=== PATIENT | female | born 1980 | race Caucasian/White ===

== ENCOUNTER 2021-10-07 19:31 | Emergency (ER) | payer BC, OTHER ==
[~2021-10-07] VITALS: Ht 170 cm; Wt 68.5 kg
[2021-10-07] MEDS ORDERED: FLUMAZENIL (ROMAZICON) 0.1 MG/ML 10 ML VIAL IV STA (19:34)
--- NOTE | 2021-10-07 19:34 | ED General ---
General Stated Complaint: OD History of Present Illness Date Seen by Provider: Oct 07, 2021 Time Seen by Provider: 19:33 Initial Comments 41-year-old female is brought in by EMS with complaints of Xanax overdose and alcohol intoxication. Patient was found in her trailer by her who called EMS. It is unknown at what time the patient took the medication. Patient states that she took 6 tablets of Xanax and melatonin and was trying to sleep. Patient is very drowsy and has slurred speech but she is slowly able to answer questions. Denies headache, falls, LOC, nausea and vomiting, abdominal pain, chest pain, shortness of breath. (AGATA COOPER MD) Allergies and Home Medications Allergies Coded Allergies: doxycycline (Verified Allergy, Unknown, 10/08/21) Patient Home Medication List Home Medication List Reviewed: Yes (AGATA COOPER MD) Review of Systems Review of Systems Constitutional: other (drowsy) EENTM: no symptoms reported Respiratory: no symptoms reported Cardiovascular: no symptoms reported Gastrointestinal: no symptoms reported Genitourinary: no symptoms reported Musculoskeletal: no symptoms reported Skin: no symptoms reported Psychiatric/Neurological: Emotional Problems, Other (overdose/ drowsy) Hematologic/Lymphatic: No Symptoms Reported Immunological/Allergic: no symptoms reported (AGATA COOPER MD) Physical Exam Vital Signs Vital Signs - First Documented 10/07/21 19:34 Temp 36.4 Pulse 141 Resp 25 B/P (MAP) 129/80 (96) Pulse Ox 95 O2 Delivery Nasal Cannula (NICHELLE NIXON MD) Vital Signs Capillary Refill : (AGATA COOPER MD) Height, Weight, BMI Height: '" Weight: lbs. oz. kg; BMI Method: General Appearance: No Apparent Distress, Other (drowsy) HEENT: PERRL/EOMI, Other (dry mucous membranes) Neck: Full Range of Motion, Normal Inspection, Non Tender, Supple Respiratory: Chest Non Tender, Lungs Clear, Normal Breath Sounds, No Accessory Muscle Use Cardiovascular: No Edema, No Murmur, Normal Peripheral Pulses, Tachycardia Gastrointestinal: Normal Bowel Sounds, Non Tender, Soft Neurologic/Psychiatric: Alert, Oriented x3, No Motor/Sensory Deficits, manager latin II- XII Norm as Tested, Other (drowsy but improving and able to answer all questions) Skin: Normal Color Lymphatic: No Adenopathy (AGATA COOPER MD) Progress/Results/Core Measures Suspected Sepsis SIRS Temperature: Pulse: Respiratory Rate: Laboratory Tests 10/07/21 19:30: White Blood Count 11.1H Blood Pressure / Mean: Laboratory Tests 10/07/21 19:30: Creatinine 0.67, Platelet Count 513H, Total Bilirubin 1.6H (AGATA COOPER MD) Results/Orders Lab Results Laboratory Tests Test 10/07/21 19:30 10/07/21 19:48 10/08/21 00:51 10/08/21 06:21 Range/Units White Blood Count 11.1 H 4.3-11.0 10^3/uL Red Blood Count 4.98 3.80-5.11 10^6/uL Hemoglobin 16.4 H 11.5-16.0 g/dL Hematocrit 47 35-52 % Mean Corpuscular Volume 94 80-99 fL Mean Corpuscular Hemoglobin 33 25-34 pg Mean Corpuscular Hemoglobin Concent 35 32-36 g/dL Red Cell Distribution Width 13.4 10.0-14.5 % Platelet Count 513 H 130-400 10^3/uL Mean Platelet Volume 9.5 9.0-12.2 fL Immature Granulocyte % (Auto) 0 % Neutrophils (%) (Auto) 70 42-75 % Lymphocytes (%) (Auto) 20 12-44 % Monocytes (%) (Auto) 7 0-12 % Eosinophils (%) (Auto) 1 0-10 % Basophils (%) (Auto) 2 0-10 % Neutrophils # (Auto) 7.8 1.8-7.8 10^3/uL Lymphocytes # (Auto) 2.2 1.0-4.0 10^3/uL Monocytes # (Auto) 0.8 0.0-1.0 10^3/uL Eosinophils # (Auto) 0.2 0.0-0.3 10^3/uL Basophils # (Auto) 0.2 H 0.0-0.1 10^3/uL Immature Granulocyte # (Auto) 0.0 0.0-0.1 10^3/uL Sodium Level 141 135-145 MMOL/L Potassium Level 4.2 3.6-5.0 MMOL/L Chloride Level 98 98-107 MMOL/L Carbon Dioxide Level 21 21-32 MMOL/L Anion Gap 22 H 5-14 MMOL/L Blood Urea Nitrogen 5 L 7-18 MG/DL Creatinine 0.67 0.60-1.30 MG/DL Estimat Glomerular Filtration Rate 113 BUN/Creatinine Ratio 7 Glucose Level 70 70-105 MG/DL Calcium Level 12.4 H 8.5-10.1 MG/DL Corrected Calcium 8.5-10.1 MG/DL Total Bilirubin 1.6 H 0.1-1.0 MG/DL Aspartate Amino Transf (AST/SGOT) 162 H 5-34 U/L Alanine Aminotransferase (ALT/SGPT) 147 H 0-55 U/L Alkaline Phosphatase 100 40-136 U/L Total Protein 8.5 H 6.4-8.2 GM/DL Albumin 4.8 H 3.2-4.5 GM/DL Salicylates Level < 0.3 L 5.0-20.0 MG/DL Acetaminophen Level < 10 L 10-30 UG/ML Serum Alcohol 303 *H 215 H 121 H <10 MG/DL Urine Color YELLOW Urine Clarity CLEAR Urine pH 5.5 5-9 Urine Specific [place] 1.020 1.016-1.022 Urine Protein NEGATIVE NEGATIVE Urine Glucose (UA) NEGATIVE NEGATIVE Urine Ketones 2+ H NEGATIVE Urine Nitrite NEGATIVE NEGATIVE Urine Bilirubin NEGATIVE NEGATIVE Urine Urobilinogen 0.2 < = 1.0 MG/DL Urine Leukocyte Esterase NEGATIVE NEGATIVE Urine RBC (Auto) NEGATIVE NEGATIVE Urine RBC NONE /HPF Urine WBC RARE /HPF Urine Squamous Epithelial Cells 5-10 /HPF Urine Crystals NONE /LPF Urine Bacteria NEGATIVE /HPF Urine Casts PRESENT /LPF Urine Hyaline Casts 5-10 H /LPF Urine Mucus SMALL H /LPF Urine Culture Indicated NO Urine Opiates Screen NEGATIVE NEGATIVE Urine Oxycodone Screen NEGATIVE NEGATIVE Urine Methadone Screen NEGATIVE NEGATIVE Urine Propoxyphene Screen NEGATIVE NEGATIVE Urine Barbiturates Screen NEGATIVE NEGATIVE Ur Tricyclic Antidepressants Screen NEGATIVE NEGATIVE Urine Phencyclidine Screen NEGATIVE NEGATIVE Urine Amphetamines Screen NEGATIVE NEGATIVE Urine Methamphetamines Screen NEGATIVE NEGATIVE Urine Benzodiazepines Screen POSITIVE H NEGATIVE Urine Cocaine Screen NEGATIVE NEGATIVE Urine Cannabinoids Screen NEGATIVE NEGATIVE Test 10/08/21 09:03 Range/Units Serum Alcohol 70 H <10 MG/DL (NICHELLE NIXON MD) My Orders Orders - NICHELLE NIXON MD Alcohol (10/08/21 08:41) Lorazepam Tablet (Ativan Tablet) (10/08/21 14:59) (NICHELLE NIXON MD) Medications Given in ED (NICHELLE NIXON MD) Vital Signs/I&O 10/07/21 10/08/21 10/08/21 19:34 06:35 18:14 Temp 36.4 36.4 Pulse 141 107 98 Resp 25 21 18 B/P (MAP) 129/80 (96) 118/79 122/68 Pulse Ox 95 94 99 O2 Delivery Nasal Cannula Room Air Room Air 10/08/21 00:00 Intake Total 1000 ml Balance 1000 ml (NICHELLE NIXON MD) Vital Signs/I&O Capillary Refill : (AGATA COOPER MD) Progress Note : Progress Note 1. XANAX OVERDOSE: - Pt took 6 tablets of Xanax - Labs unremarkable - EKG shows sinus tachycardia - NS IVF - Flumazenil 0.2mg STAT given x1 - Pt more alert and able to speak clearly after treatment and fluids. Pt wants to be discharged home. Initial plan: Pt will need to be transferred to ICU/ step down for telemetry monitoring and psych screening. CURRENT PLAN:A lot of time was spent on the phone trying different hospitals for an ICU bed but none were available, and [facility] did not have enough staff to open all their ICU beds. Therefore I decided to keep pt in the ER and monitor her until her vitals improve and she can have psych screening after her s. ETOH level is <100 2. ALCOHOL INTOXICATION: - s. ETOH level is 303 - AST:ALT elevation - NS IVF bolus STAT - Repeat ETOH level 121,will reach out to psych screener. - Signed out to Dr Nixon (AGATA COOPER MD) Progress Note : Progress Note 0740: Patient care transferred to [facility] at 0700. Patient is alert and oriented. Patient stated she had several Xanax and melatonin and some alcohol yesterday just wanted to sleep. Patient denies suicidal and homicidal ideation and history of suicidal attempt or mental hospitalization. Patient states she cannot take any depression medication because of prolonged QT syndrome. Blood alcohol level at 0 620 was 121. Patient encouraged to drink more liquid and plan to repeat blood alcohol again to have level less than 100 to able to perform psychiatric evaluation. Patient informed about plan of care and needs to repeat the blood test and all questions was addressed. 1630: Repeat alcohol level at 9 AM was 70 and psychiatric consult was requested that was performed around 1530 with still going on. Patient had increase of heart rate to 120s and 1 mg of Ativan orally was ordered but was not given because patient is in interview with psych supervisor [employer]. 1810: Patient was evaluated by psych transport driver Oscar Canales, she did not have criteria for inpatient admission. Patient had lots of family support and feels comfortable to go home. Her mother is going to stay with her and her is going to be there with her children also. Patient plan to follow-up with counselor. Patient advised to stop drinking gradually, not suddenly for prevention of DT. Patient signed safety agreement. Patient ambulated without any problem. (NICHELLE NIXON MD) Departure Impression Primary Impression: Xanax overdose Additional Impression: Alcohol intoxication Qualified Codes: F10.929 - Alcohol use, unspecified with intoxication, unspecified Disposition: 01 HOME, SELF-CARE Condition: Improved Admissions Decision to Admit Reason: Admit from ER (General) Decision to Admit/Date: Oct 07, 2021 Time/Decision to Admit Time: 19:35 (AGATA COOPER MD) Transfer Method of Transfer: EMS (AGATA COOPER MD) Departure-Patient Inst. Decision time for Depature: 18:10 (NICHELLE NIXON MD) Patient Instructions: ALCOHOL AND SUBSTANCE ABUSE, Alcohol Withdrawal, Alcohol Intoxication ED Add. Discharge Instructions: Stop drinking alcohol gradually Follow UP with AA Follow up with your PCP and consoler Return to ER as needed AGATA COOPER MD Oct 07, 2021 19:34 NICHELLE NIXON MD Oct 08, 2021 08:01
[2021-10-07 19:45] LABS: BASOPHILS # (AUTO) 0.2 10^3/uL (0.0-0.1); BASOPHILS % (AUTO) 2 % (0-10); EOSINOPHILS # (AUTO) 0.2 10^3/uL (0.0-0.3); EOSINOPHILS % (AUTO) 1 % (0-10); HEMATOCRIT 47 % (35-52); HEMOGLOBIN 16.4 g/dL (11.5-16.0); LYMPHOCYTES # (AUTO) 2.2 10^3/uL (1.0-4.0); LYMPHOCYTES % (AUTO) 20 % (12-44); MEAN CORPUSCULAR HEMOGLOBIN 33 pg (25-34); MEAN CORPUSCULAR HGB CONC 35 g/dL (32-36); MEAN CORPUSCULAR VOLUME 94 fL (80-99); MEAN PLATELET VOLUME 9.5 fL (9.0-12.2); MONOCYTES # (AUTO) 0.8 10^3/uL (0.0-1.0); MONOCYTES % (AUTO) 7 % (0-12); NEUTROPHILS # (AUTO) 7.8 10^3/uL (1.8-7.8); NEUTROPHILS % (AUTO) 70 % (42-75); PLATELET COUNT 513 10^3/uL (130-400); WHITE BLOOD COUNT 11.1 10^3/uL (4.3-11.0)
[2021-10-07] MEDS ORDERED: LIDOCAINE UROJET 2% GEL 10 ML PKG TOP ONE (19:45)
[2021-10-07] MEDS ORDERED: NS IV 1000 ML 1,000 ML IV SCH ×2 (19:45→23:00)
[2021-10-07 19:51] LABS: BILIRUBIN,URINE NEGATIVE (NEGATIVE); CLARITY,URINE CLEAR; COLOR,URINE YELLOW; GLUCOSE, URINE (UA) NEGATIVE (NEGATIVE); KETONES,URINE 2+ (NEGATIVE); LEUKOCYTE ESTERASE ,URINE NEGATIVE (NEGATIVE); NITRITE,URINE NEGATIVE (NEGATIVE); PH,URINE 5.5 (5-9); PROTEIN,URINE NEGATIVE (NEGATIVE)
[2021-10-07 20:11] LABS: BACTERIA,URINE NEGATIVE /HPF; WBC,URINE RARE /HPF
[2021-10-07 20:12] LABS: BUN/CREATININE RATIO 7; CARBON DIOXIDE 21 MMOL/L (21-32); CHLORIDE 98 MMOL/L (98-107); CREATININE SERUM 0.67 MG/DL (0.60-1.30); GFR ESTIMATED 113; GLUCOSE 70 MG/DL (70-105); POTASSIUM 4.2 MMOL/L (3.6-5.0); SODIUM 141 MMOL/L (135-145)
[2021-10-07 20:12] LABS: AMPHETAMINE SCREEN, URINE NEGATIVE (NEGATIVE); BARBITURATE SCREEN URINE NEGATIVE (NEGATIVE); BENZODIAZEPINES SCREEN URINE POSITIVE (NEGATIVE); CANNABINOID SCREEN, URINE NEGATIVE (NEGATIVE); COCAINE SCREEN URINE NEGATIVE (NEGATIVE); METHADONE STAT NEGATIVE (NEGATIVE); OPIATE SCREEN URINE NEGATIVE (NEGATIVE); OXYCODONE STAT NEGATIVE (NEGATIVE); PROPOXYPHENE STAT NEGATIVE (NEGATIVE); TRICYCLIC ANTIDEPRESSANTS SCRE NEGATIVE (NEGATIVE)
[2021-10-07 20:13] LABS: ACETAMINOPHEN < 10 UG/ML (10-30); ALANINE AMINOTRANSFERASE 147 U/L (0-55); ALBUMIN 4.8 GM/DL (3.2-4.5); ALKALINE PHOSPHATASE 100 U/L (40-136); BILIRUBIN,TOTAL 1.6 MG/DL (0.1-1.0); CALCIUM 12.4 MG/DL (8.5-10.1); SALICYLATE < 0.3 MG/DL (5.0-20.0); TOTAL PROTEIN 8.5 GM/DL (6.4-8.2)
--- NOTE | 2021-10-07 20:16 | Diagnostic Imaging Report ---
INDICATION: Overdose. FINDINGS: There is no focal consolidation, failure pattern, effusion or pneumothorax. IMPRESSION: No acute appearing abnormality Dictated by: Dictated on workstation # [id number]
[2021-10-07] MEDS ORDERED: THIAMINE INJECTION 100 MG in NS (IVPB) 50 ML IV STA (23:25)
[2021-10-07] MEDS ORDERED: FOLIC ACID 1 MG TAB PO ONE (23:30)
[2021-10-08] MEDS ORDERED: NS IV 1000 ML 1,000 ML IV STA (00:47)
[2021-10-08] MEDS ORDERED: ACETAMINOPHEN 325 MG TABLET PO ONE (05:45)
[2021-10-08] MEDS ORDERED: LORazepam 0.5 MG (ATIVAN) TABLET PO STA (14:59)
[2021-10-08 18:14] VITALS: BP 122/68
== END 2021-10-08 18:13 | disposition home or self-care (01) ==
LOC: ER FS 19:34
DX: T42.4X1A Poisoning by benzodiazepines, accidental (unintentional), initial encounter (principal); F10.129 Alcohol abuse with intoxication, unspecified; Y90.3 Blood alcohol level of 60-79 mg/100 ml
CPT/HCPCS: 36415 ×2; 71045; 80053; 80306; 81000; 85025; 93005; 93041; 99284; G0480 ×4; 80320; 80329

== ENCOUNTER 2022-03-14 23:58 | Inpatient (IN) | payer BC ==
[~2022-03-14] VITALS: Ht 167.7 cm; Wt 74.6 kg
[2022-03-15 00:14] LABS: BASOPHILS # (AUTO) 0.1 10^3/uL (0.0-0.1); BASOPHILS % (AUTO) 1 % (0-10); EOSINOPHILS % (AUTO) 0 % (0-10); HEMATOCRIT 43 % (35-52); HEMOGLOBIN 15.6 g/dL (11.5-16.0); LYMPHOCYTES # (AUTO) 1.7 10^3/uL (1.0-4.0); LYMPHOCYTES % (AUTO) 13 % (12-44); MEAN CORPUSCULAR HEMOGLOBIN 35 pg (25-34); MEAN CORPUSCULAR HGB CONC 36 g/dL (32-36); MEAN CORPUSCULAR VOLUME 97 fL (80-99); MEAN PLATELET VOLUME 9.9 fL (9.0-12.2); MONOCYTES # (AUTO) 1.5 10^3/uL (0.0-1.0); MONOCYTES % (AUTO) 12 % (0-12); NEUTROPHILS # (AUTO) 9.5 10^3/uL (1.8-7.8); NEUTROPHILS % (AUTO) 74 % (42-75); PLATELET COUNT 255 10^3/uL (130-400); WHITE BLOOD COUNT 12.8 10^3/uL (4.3-11.0)
[2022-03-15] MEDS ORDERED: ONDANSETRON 4 MG/2 ML (SDV) Z0FRAN IVP ONE (00:15)
[2022-03-15] MEDS ORDERED: NS IV 1000 ML 1,000 ML IV SCH ×2 (00:15→02:00)
--- NOTE | 2022-03-15 00:18 | ED Abdominal Pain ---
General Chief Complaint: Abdominal/GI Problems Stated Complaint: STIFFNESS, NAUSEA VOMITING, History of Present Illness Date Seen by Provider: Mar 15, 2022 Time Seen by Provider: 00:16 Initial Comments 41-year-old female here with complaints of nausea and vomiting for over a day. Has vomited a lot. Now patient is having muscle cramping in the hands. Her hands are cramped up and she cannot move them. States she is this is happened once before and she had a magnesium deficiency at that time. Patient not having any fever. Was having some abdominal pain. No diarrhea no constipation. Pain was down low. Patient is shaking. Patient states she got history of anxiety but she is not on any meds for that she had been on medicine for high blood pressure but is not on meds for that either. Allergies and Home Medications Allergies Coded Allergies: doxycycline (Verified Allergy, Unknown, 10/08/21) Patient Home Medication List Home Medication List Reviewed: Yes Review of Systems Review of Systems Constitutional: see HPI Past Dcrbags-Axzebl-Cfrgqq Hx Patient Social History Tobacco Use?: No Use of E-Cig and/or Vaping dev: No Substance use?: No Alcohol Use?: Yes Immunizations Up To Date Influenza Vaccine Up-to-Date: No; Not Current First/Initial COVID19 Vaccinat: Yes Second COVID19 Vaccination Jesse: Yes Past Medical History Surgery/Hospitalization HX: Gallbladder Physical Exam Vital Signs Vital Signs - First Documented 03/15/22 00:03 Temp 36.6 Pulse 110 Resp 20 B/P (MAP) 155/106 (122) Pulse Ox 98 O2 Delivery Room Air Capillary Refill : Height/Weight/BMI Height: '" Weight: lbs. oz. kg; 23.00 BMI Method: General Appearance: WD/WN HEENT: PERRL/EOMI, pharynx normal Neck: non-tender, supple Respiratory: chest non-tender, normal breath sounds Cardiovascular: regular rate, rhythm, no edema, no murmur Gastrointestinal: normal bowel sounds, non tender, soft Neurologic/Psychiatric: alert, oriented x 3 Progress/Results/Core Measures Results/Orders Lab Results Laboratory Tests Test 03/15/22 00:05 03/15/22 01:20 03/15/22 01:58 Range/Units White Blood Count 12.8 H 4.3-11.0 10^3/uL Red Blood Count 4.46 3.80-5.11 10^6/uL Hemoglobin 15.6 11.5-16.0 g/dL Hematocrit 43 35-52 % Mean Corpuscular Volume 97 80-99 fL Mean Corpuscular Hemoglobin 35 H 25-34 pg Mean Corpuscular Hemoglobin Concent 36 32-36 g/dL Red Cell Distribution Width 13.5 10.0-14.5 % Platelet Count 255 130-400 10^3/uL Mean Platelet Volume 9.9 9.0-12.2 fL Immature Granulocyte % (Auto) 1 % Neutrophils (%) (Auto) 74 42-75 % Lymphocytes (%) (Auto) 13 12-44 % Monocytes (%) (Auto) 12 0-12 % Eosinophils (%) (Auto) 0 0-10 % Basophils (%) (Auto) 1 0-10 % Neutrophils # (Auto) 9.5 H 1.8-7.8 10^3/uL Lymphocytes # (Auto) 1.7 1.0-4.0 10^3/uL Monocytes # (Auto) 1.5 H 0.0-1.0 10^3/uL Eosinophils # (Auto) 0.0 0.0-0.3 10^3/uL Basophils # (Auto) 0.1 0.0-0.1 10^3/uL Immature Granulocyte # (Auto) 0.1 0.0-0.1 10^3/uL Sodium Level 136 135-145 MMOL/L Potassium Level 3.0 L 3.6-5.0 MMOL/L Chloride Level 83 L 98-107 MMOL/L Carbon Dioxide Level 22 21-32 MMOL/L Anion Gap 31 H 5-14 MMOL/L Blood Urea Nitrogen 8 7-18 MG/DL Creatinine 0.85 0.60-1.30 MG/DL Estimat Glomerular Filtration Rate 89 BUN/Creatinine Ratio 9 Glucose Level 104 70-105 MG/DL Calcium Level 9.4 8.5-10.1 MG/DL Corrected Calcium 8.5-10.1 MG/DL Magnesium Level 1.3 L 1.6-2.4 MG/DL Total Bilirubin 4.5 H 0.1-1.0 MG/DL Aspartate Amino Transf (AST/SGOT) 189 H 5-34 U/L Alanine Aminotransferase (ALT/SGPT) 175 H 0-55 U/L Alkaline Phosphatase 160 H 40-136 U/L Total Protein 8.7 H 6.4-8.2 GM/DL Albumin 4.6 H 3.2-4.5 GM/DL Lipase 38 8-78 U/L Salicylates Level < 0.3 L 5.0-20.0 MG/DL Serum Alcohol < 10 <10 MG/DL Blood Gas Puncture Site RIGHT RADIAL LEFT RADIAL Blood Gas Patient Temperature 36.6 36.6 Arterial Blood pH 7.55 H 7.54 H 7.37-7.43 Arterial Blood Partial Pressure CO2 35 32 L 35-45 MMHG Arterial Blood Partial Pressure O2 17 *L 90 79-93 MMHG Arterial Blood HCO3 31 H 28 H 23-27 MMOL/L Arterial Blood Total CO2 32.0 H 29.0 21.0-31.0 MMOL/L Arterial Blood Oxygen Saturation 31 L 98 94-100 % Arterial Blood Base Excess 8.0 H 6.0 H -2.5-2.5 MMOL/L Ricardo Test POSITIVE POSITIVE Blood Gas Ventilator Setting NO NO Blood Gas Inspired Oxygen ROOM AIR ROOM AIR My Orders Orders - RUCHI MARTÍNEZ MD Cbc With Automated Diff (03/15/22 00:08) Comprehensive Metabolic Panel (03/15/22 00:08) Magnesium (03/15/22 00:08) Lipase (03/15/22 00:08) Ns Iv 1000 Ml (Sodium Chloride 0.9%) (03/15/22 00:15) Abdomen (Kub) 1 View (03/15/22 00:15) Ondansetron Injection (Zofran Injectio (03/15/22 00:15) Magnesium 2 Gm/50 Ml Ivpb (Magnesium 2 G (03/15/22 00:45) Magnesium 1 Gm/100 Ml Ivpb (Magnesium Foreman (03/15/22 00:47) Magnesium 1 Gm/100 Ml Ivpb (Magnesium Foreman (03/15/22 00:48) Nursing Program Manager (03/15/22 00:52) Magnesium 1 Gm/100 Ml Ivpb (Magnesium Foreman (03/15/22 00:56) Morphine Injection (Morphine Injection (03/15/22 01:03) Arterial Blood Gas (03/15/22 01:23) Alcohol (03/15/22 01:25) Salicylate (03/15/22 01:26) Arterial Blood Gas (03/15/22 01:58) Ns Iv 1000 Ml (Sodium Chloride 0.9%) (03/15/22 02:00) Ns Iv 1000 Ml (Sodium Chloride 0.9%) (03/15/22 02:03) Potassium Chloride (Tablet) (K Dur Table (03/15/22 02:30) Antacid Suspension (Mylanta Suspension (03/15/22 02:30) Medications Given in ED Current Medications Medications Dose Ordered Sig/Roel Route Start Time Stop Time Status Last Admin Dose Admin Magnesium Sulfate/ Dextrose 100 ml @ ud STK-MED ONCE IV 03/15/22 00:47 03/15/22 00:51 DC 03/15/22 01:00 100 MLS/HR Ondansetron HCl 4 mg ONCE ONCE IVP 03/15/22 00:15 03/15/22 00:17 DC 03/15/22 00:24 4 MG Vital Signs/I&O 03/15/22 00:03 Temp 36.6 Pulse 110 Resp 20 B/P (MAP) 155/106 (122) Pulse Ox 98 O2 Delivery Room Air Progress Progress Note #1: Time: 01:01 Progress Note X-ray looks okay. Labs show slightly low potassium low magnesium elevated liver enzymes elevated bilirubin. Patient states she does drink and that is what is likely from. She had having plenty of work-up prior to this when she lived in [place]. Has not seen a doctor since she moved here anion gap is high at 31. We will get an ABG Progress Note #2: Time: 02:15 Progress Note Patient awake and talking. Still not having feeling urinate. Has had 1 bag of fluid and had 1 g of magnesium in. Patient is feeling better as far as the cramps. States they are getting better. She did have a drink few days ago but quit. Patient started vomiting night into Thursday. Patient also tried some laxatives think that she was constipated. Labs ABG shows alkalosis Progress Note #3: Time: 02:38 Progress Note 41-year-old female with metabolic alkalosis hypokalemia hypomagnesemia nausea and vomiting history of alcohol use elevated liver enzymes. She will be admitted to [facility] for further care fluid management and monitoring. Patient is stable. We will transfer. Departure Impression Primary Impression: Metabolic alkalosis Additional Impressions: Hypomagnesemia Hypokalemia Alcohol use Nausea & vomiting Qualified Codes: R11.2 - Nausea with vomiting, unspecified Disposition: 30 STILL A PATIENT Condition: Stable Admissions Decision to Admit Reason: Admit from ER (General) Decision to Admit/Date: Mar 15, 2022 Time/Decision to Admit Time: 02:24 Transfer Transfer Reason: Exceeds level of care Time Spoke to Accepting Phy: 02:24 Transfer Progress Notes Spoke with Dr. Ash. He will admit observation we will continue fluids. Departure-Patient Inst. Referrals: NO,LOCAL PHYSICIAN (PCP/Family) Primary Care Physician Patient Instructions: Nausea and Vomiting, Adult ED, Low Magnesium Level (DC), Hypokalemia, Dehydration, Adult (DC) Add. Discharge Instructions: Establish with local primary care provider once discharged from the hospital for further monitoring of medical care. All discharge instructions reviewed with patient and/or family. Voiced understanding. RUCHI MARTÍNEZ MD Mar 15, 2022 00:18
[2022-03-15 00:31] LABS: ALANINE AMINOTRANSFERASE 175 U/L (0-55); ALKALINE PHOSPHATASE 160 U/L (40-136); BILIRUBIN,TOTAL 4.5 MG/DL (0.1-1.0); BUN/CREATININE RATIO 9; CALCIUM 9.4 MG/DL (8.5-10.1); CARBON DIOXIDE 22 MMOL/L (21-32); CHLORIDE 83 MMOL/L (98-107); CREATININE SERUM 0.85 MG/DL (0.60-1.30); GFR ESTIMATED 89; GLUCOSE 104 MG/DL (70-105); MAGNESIUM 1.3 MG/DL (1.6-2.4); SODIUM 136 MMOL/L (135-145)
[2022-03-15 00:32] LABS: ALBUMIN 4.6 GM/DL (3.2-4.5); LIPASE 38 U/L (8-78); TOTAL PROTEIN 8.7 GM/DL (6.4-8.2)
[2022-03-15] MEDS ORDERED: MAGNESIUM 2 GM/50 ML IVPB 50 ML IV ONE (00:45)
[2022-03-15] MEDS ORDERED: MAGNESIUM 1 GM/100 ML IVPB 100 ML IV ONE ×3 (00:47→02:45)
[2022-03-15] MEDS ORDERED: MAGNESIUM 1 GM/100 ML IV ONE (00:56)
[2022-03-15] MEDS ORDERED: morphine INJ 10 MG/ML 1ML (SYR OR VIAL) IVP STA (01:03)
[2022-03-15 01:39] LABS: ABG PCO2 35 MMHG (35-45); ABG PH 7.55 (7.37-7.43)
[2022-03-15 01:40] LABS: ABG OXYGEN SATURATION 31 % (94-100); ALLENS TEST POSITIVE; INSPIRED O2 ROOM AIR; PATIENT TEMP 36.6; VENTILATOR NO
[2022-03-15 01:42] LABS: ABG PO2 17 MMHG (79-93)
[2022-03-15 02:01] LABS: SALICYLATE < 0.3 MG/DL (5.0-20.0)
[2022-03-15] MEDS ORDERED: NS IV 1000 ML 1,000 ML ONE (02:03)
[2022-03-15 02:06] LABS: ABG OXYGEN SATURATION 98 % (94-100); ABG PCO2 32 MMHG (35-45); ABG PH 7.54 (7.37-7.43); ABG PO2 90 MMHG (79-93); ALLENS TEST POSITIVE; INSPIRED O2 ROOM AIR; PATIENT TEMP 36.6; VENTILATOR NO
[2022-03-15] MEDS ORDERED: KCL 20 MEQ TAB (K-DUR) PO ONE (02:30)
[2022-03-15] MEDS ORDERED: ANTACID SUSP 30 ML UDC (MYLANTA) PO ONE (02:30)
[2022-03-15 04:09] VITALS: BP 133/83
[2022-03-15] MEDS ORDERED: ONDANSETRON 4 MG (ZOFRAN) ORAL DISSOLVE TAB PO PRN ×2 (04:45→10:30)
[2022-03-15] MEDS: NS IV 1000 ML 1,000 ML IV SCH ×3 (05:06→20:43)
[2022-03-15 06:57] LABS: BASOPHILS % (AUTO) 0 % (0-10); EOSINOPHILS % (AUTO) 0 % (0-10); HEMATOCRIT 37 % (35-52); HEMOGLOBIN 13.1 g/dL (11.5-16.0); LYMPHOCYTES % (AUTO) 12 % (12-44); MEAN CORPUSCULAR HEMOGLOBIN 35 pg (25-34); MEAN CORPUSCULAR HGB CONC 35 g/dL (32-36); MEAN CORPUSCULAR VOLUME 98 fL (80-99); MEAN PLATELET VOLUME 10.9 fL (9.0-12.2); MONOCYTES # (AUTO) 1.2 10^3/uL (0.0-1.0); MONOCYTES % (AUTO) 15 % (0-12); NEUTROPHILS # (AUTO) 5.9 10^3/uL (1.8-7.8); NEUTROPHILS % (AUTO) 72 % (42-75); PLATELET COUNT 157 10^3/uL (130-400); WHITE BLOOD COUNT 8.1 10^3/uL (4.3-11.0)
[2022-03-15 07:19] LABS: ALBUMIN 3.6 GM/DL (3.2-4.5); BILIRUBIN,TOTAL 4.1 MG/DL (0.1-1.0); CREATININE SERUM 0.79 MG/DL (0.60-1.30); MAGNESIUM 1.8 MG/DL (1.6-2.4); POTASSIUM 2.7 MMOL/L (3.6-5.0)
[2022-03-15 07:31] VITALS: BP 151/81
--- NOTE | 2022-03-15 07:42 | Diagnostic Imaging Report ---
INDICATION: abdominal pain. TECHNIQUE: Single radiograph of the abdomen for 30 3:00 AM CORRELATION STUDY: None FINDINGS: Imaging of the abdomen demonstrates the bowel gas pattern to be unremarkable and without evidence for obstruction. No significant differential air-fluid levels. No evidence for free air. Cholecystectomy clips right upper quadrant. No pathologic intraabdominal calcifications. IMPRESSION: 1. Non-obstructed bowel gas pattern. Dictated by: Dictated on workstation # [id number]
[2022-03-15] MEDS ORDERED: KCL 20 MEQ TAB (K-DUR) PO NR (09:00)
[2022-03-15] MEDS: MAGNESIUM 1 GM/100 ML IVPB 100 ML IV SCH ×3 (09:20→13:43)
[2022-03-15] MEDS ORDERED: PANTOPRAZOLE 40 MG (PROTONIX) VIAL IV NR (10:30)
[2022-03-15] MEDS ORDERED: ONDANSETRON 4 MG/2 ML (SDV) Z0FRAN IVP PRN (10:30)
[2022-03-15] MEDS ORDERED: morphine INJ 4 MG/ML 1 ML (VIAL/SYRINGE) ONE (10:42)
[2022-03-15] MEDS ORDERED: morphine INJ 4 MG/ML 1 ML (VIAL/SYRINGE) IVP PRN (10:45)
--- NOTE | 2022-03-15 10:54 | History & Physical-Hospitalist ---
History of Present Illness HPI/Chief Complaint Brinda Vines is a 41 year old female who presented with nausea and vomiting. She has also been having lower abdominal pain. She thought she was constipated. She denies diarrhea and bloody stools. She denies fevers and chills. She denies chest pain and shortness of breath. She denies dysuria and frequency. She drinks a few alcoholic drinks daily. She has a history of elevated liver enzymes. She has been worked up by a GI doctor in [place]. She had her gallbladder taken out earlier this year. She has four children and had a tubal ligation in 2016. She does not take any medications daily. She does not smoke or use illicit drugs. Source: patient Exam Limitations: no limitations Date Seen 03/15/22 Time Seen by a Provider: 10:30 Attending Physician Chasity,Local Physician PCP Admitting Physician: Aydee Rivera MD Attending Physician: Aydee Rivera MD Referring Physician Date of Admission Mar 15, 2022 at 03:55 Home Medications & Allergies Home Medications Reviewed patient Home Medication Reconciliation performed by pharmacy medication reconciliations software support technician and/or nursing. Patients Allergies have been reviewed. Allergies Allergies Coded Allergies doxycycline (Verified Allergy, Unknown, 10/08/21) Past Okfpmqh-Nhyqdg-Gboktu Hx Patient Social History Tobacco Use?: No Smoking Status: Never a Smoker Smokeless Tobacco Frequency: Never a User Use of E-Cig and/or Vaping dev: No Use of E-Cig and/or Vaping Jorge: Never a User Substance use?: No Alcohol Use?: Yes Alcohol type: Hard Liquor Alcohol Frequency: Couple times a week Additional Alcohol Comments: pt reports quitting a few days ago and that she needs to stop using Pt feels they are or have been: No Immunizations Up To Date First/Initial COVID19 Vaccinat: Yes Second COVID19 Vaccination Jesse: Yes Tetanus Booster (TDap): More Than 5 Years Current Status status: No status: No Advance Directives: No Communicates: Verbally Primary Language: Danish Preferred Spoken Language: Danish Is interpretation needed?: No Implanted or Applied Medical D: None Family Medical History No Pertinent Family Hx Review of Systems Constitutional: no symptoms reported EENTM: no symptoms reported Respiratory: no symptoms reported Cardiovascular: no symptoms reported Gastrointestinal: abdominal pain, constipation, nausea, vomiting Physical Exam Physical Exam Vital Signs Vital Signs - First Documented 03/15/22 00:03 Temp 36.6 Pulse 110 Resp 20 B/P (MAP) 155/106 (122) Pulse Ox 98 O2 Delivery Room Air Capillary Refill : Less Than 3 Seconds Height, Weight, BMI Height: '" Weight: lbs. oz. kg; 26.52 BMI Method: General Appearance: No Apparent Distress, WD/WN HEENT: PERRL/EOMI, Pharynx Normal Neck: Normal Inspection, Supple Respiratory: Lungs Clear, No Respiratory Distress Cardiovascular: Regular Rate, Rhythm, No Edema, No Murmur Gastrointestinal: Normal Bowel Sounds, Non Tender, Soft; No Distended, No Guarding, No Mass Extremity: Normal Inspection, Non Tender, No Pedal Edema Neurologic/Psychiatric: Alert, Oriented x3, No Motor/Sensory Deficits Skin: Normal Color, Warm/Dry Results Results/Procedures Labs Laboratory Tests 03/15/22 00:05 03/15/22 06:06 Patient resulted labs reviewed. Imaging: Reviewed Imaging Report Assessment/Plan Admission Diagnosis Elevated liver enzymes Admission Status: Inpatient Order (span 2 midnights) Reason for Inpatient Admission: Intractable nausea and vomiting Electrolyte abnormalities Assessment and Plan Intractable nausea and vomiting Abdominal pain Elevated liver enzymes History of torsades de pointes Hypokalemia Hypomagnesemia Undergoing extensive outpatient evaluation with GI LFTs trending down since arrival, T bili 4.1, AST/ALT 129/136 IV fluids Pain regimen Antiemetics NPO Obtain filling station equipment mechanic and replace electrolytes as needed UA and urine test ordered US RUQ ordered Diagnosis/Problems Diagnosis/Problems (1) Elevated LFTs Status: Acute (2) Abdominal pain Status: Acute Qualifiers: Abdominal location: generalized Qualified Codes: R10.84 - Generalized abdominal pain (3) Nausea & vomiting Status: Acute Qualifiers: Vomiting type: unspecified Qualified Codes: R11.2 - Nausea with vomiting, unspecified (4) Hypokalemia Status: Acute (5) Hypomagnesemia Status: Acute (6) History of torsades de pointes Status: Chronic (7) Alcohol abuse Status: Chronic AYDEE RIVERA MD Mar 15, 2022 10:54
[2022-03-15 11:23] VITALS: BP 131/95
--- NOTE | 2022-03-15 12:40 | Diagnostic Imaging Report ---
CLINICAL INDICATION: Patient with elevated LFTs. EXAM: Right upper quadrant ultrasound. COMPARISONS: None. FINDINGS: Exam is limited by patient body habitus and overlying bowel gas. Details are obscured by overlying bowel gas. Otherwise, visualized portions of the pancreas are unremarkable. Limited visualization of the abdominal aorta and IVC showed no significant abnormality. Liver measures 15.7 cm. There is diffuse hyperechogenicity seen throughout the liver. There is no liver mass. The main portal vein demonstrates hepatopetal flow. There is no intrahepatic ductal dilation. Common bile duct and hepatic duct are obscured by overlying bowel gas and cannot be evaluated. Gallbladder is surgically absent. Right kidney measures 9.9 cm in craniocaudal dimension. There is no hydronephrosis or mass. There is no abdominal ascites. IMPRESSION: 1: Limited exam due to patient body habitus and overlying bowel gas. 2: There is no evidence of acute abnormality on this right upper quadrant ultrasound, as visualized. Of note, the common hepatic duct and bile duct are obscured by overlying bowel gas. 3: The gallbladder is surgically absent. 4: There is diffuse hyperechogenicity seen throughout the liver which may be related to diffuse fatty infiltration. Dictated by: Dictated on workstation # [id number]
[2022-03-15] MEDS ORDERED: BISACODYL 10 MG SUPP (DULCOLAX) PR NR (13:00)
[2022-03-15] MEDS ORDERED: PROCHLORPERAZINE 10 MG/2ML INJ (COMPAZINE) IV PRN (13:15)
[2022-03-15 13:22] LABS: BILIRUBIN,URINE NEGATIVE (NEGATIVE); CLARITY,URINE CLEAR; COLOR,URINE YELLOW; GLUCOSE, URINE (UA) NEGATIVE (NEGATIVE); KETONES,URINE NEGATIVE (NEGATIVE); LEUKOCYTE ESTERASE ,URINE NEGATIVE (NEGATIVE); NITRITE,URINE NEGATIVE (NEGATIVE); PH,URINE 8.5 (5-9); PROTEIN,URINE NEGATIVE (NEGATIVE)
[2022-03-15 13:30] LABS: BACTERIA,URINE FEW /HPF; SQUAMOUS EPITHELIAL CELL,UR 0-2 /HPF
[2022-03-15] MEDS ORDERED: NS IV 500 ML 500 ML IV PRN (13:30)
[2022-03-15] MEDS: POTASSIUM CL 10MEQ/50ML IVPB 50 ML IV SCH ×7 (13:42→21:47)
[2022-03-15] MEDS: KCL 20 MEQ TAB (K-DUR) PO SCH (14:00)
[2022-03-15 15:38] VITALS: BP 142/88
[2022-03-15 16:13] LABS: POTASSIUM 3.2 MMOL/L (3.6-5.0)
[2022-03-15 16:14] LABS: CALCIUM 7.5 MG/DL (8.5-10.1)
[2022-03-15 16:19] LABS: CREATININE SERUM 0.74 MG/DL (0.60-1.30)
[2022-03-15] MEDS ORDERED: IBUPROFEN 600 MG (MOTRIN) TAB PO PRN (18:00)
[2022-03-15 20:06] VITALS: BP 141/96
[2022-03-15 23:02] VITALS: BP 142/92
[2022-03-16] VITALS (7 sets, daily range): BP systolic 134–167; BP diastolic 88–98
[2022-03-16] MEDS: NS IV 1000 ML 1,000 ML IV SCH ×4 (04:18→22:48)
[2022-03-16 06:03] LABS: ALBUMIN 3.5 GM/DL (3.2-4.5)
[2022-03-16 06:04] LABS: POTASSIUM 3.6 MMOL/L (3.6-5.0)
[2022-03-16 06:05] LABS: CALCIUM 7.6 MG/DL (8.5-10.1)
[2022-03-16 06:06] LABS: TOTAL PROTEIN 6.7 GM/DL (6.4-8.2)
[2022-03-16 06:08] LABS: BILIRUBIN,TOTAL 3.7 MG/DL (0.1-1.0)
[2022-03-16 06:10] LABS: CREATININE SERUM 0.67 MG/DL (0.60-1.30)
[2022-03-16 06:13] LABS: MAGNESIUM 1.8 MG/DL (1.6-2.4)
[2022-03-16] MEDS: KCL 20 MEQ TAB (K-DUR) PO SCH (06:15)
[2022-03-16] MEDS: MAGNESIUM 1 GM/100 ML IVPB 100 ML IV SCH (06:15)
[2022-03-16] MEDS: POTASSIUM CL 10MEQ/50ML IVPB 50 ML IV SCH ×3 (07:27→08:26)
[2022-03-16] MEDS: PANTOPRAZOLE 40 MG (PROTONIX) VIAL IV SCH (08:26)
--- NOTE | 2022-03-16 11:07 | Progress Note - Hospitalist ---
Subjective HPI/CC On Admission Date Seen by Provider: Mar 16, 2022 Time Seen by Provider: 10:15 Brinda Vines is a 41 year old female who presented with nausea and vomiting. She has also been having lower abdominal pain. She thought she was constipated. She denies diarrhea and bloody stools. She denies fevers and chills. She denies chest pain and shortness of breath. She denies dysuria and frequency. She drinks a few alcoholic drinks daily. She has a history of elevated liver enzymes. She has been worked up by a GI doctor in [place]. She had her gallbladder taken out earlier this year. She has four children and had a tubal ligation in 2016. She does not take any medications daily. She does not smoke or use illicit drugs. Subjective/Events-last exam She feels better. She vomited her toast this morning. She had gone 24 hours without vomiting and did well with clear liquids. She is not having any abdominal pain. Objective Exam Vital Signs Vital Signs Date Time Temp Pulse Resp B/P (MAP) Pulse Ox O2 Delivery O2 Flow Rate FiO2 03/16/22 08:30 Room Air 03/16/22 08:04 154/93 (113) 03/16/22 07:45 67 03/16/22 07:26 36.4 18 98 Capillary Refill : Less Than 3 Seconds General Appearance: No Apparent Distress, WD/WN Respiratory: Lungs Clear, No Respiratory Distress Cardiovascular: Regular Rate, Rhythm, No Murmur Gastrointestinal: Normal Bowel Sounds, Non Tender, Soft Extremity: Normal Inspection, No Pedal Edema Neurologic/Psychiatric: Alert, No Motor/Sensory Deficits Skin: Normal Color, Warm/Dry Results/Procedures Lab Laboratory Tests 03/15/22 15:54 03/16/22 05:13 Patient resulted labs reviewed. Imaging: Reviewed Imaging Report Assessment/Plan Assessment and Plan Assess & Plan/Chief Complaint Intractable nausea and vomiting Abdominal pain Elevated liver enzymes Fatty liver Likely acute alcoholic hepatitis History of torsades de pointes Hypokalemia Hypomagnesemia Undergoing extensive outpatient evaluation with GI LFTs continue trending downward US with fatty liver Electrolytes improved, normalized Tolerating clear liquids Possible discharge home this afternoon Diagnosis/Problems Diagnosis/Problems (1) Elevated LFTs Status: Acute (2) Abdominal pain Status: Acute Qualifiers: Abdominal location: generalized Qualified Codes: R10.84 - Generalized abdominal pain (3) Nausea & vomiting Status: Acute Qualifiers: Vomiting type: unspecified Qualified Codes: R11.2 - Nausea with vomiting, unspecified (4) Hypokalemia Status: Acute (5) Hypomagnesemia Status: Acute (6) History of torsades de pointes Status: Chronic (7) Alcohol abuse Status: Chronic (8) Fatty liver Status: Acute (9) Acute on chronic alcoholic liver disease Status: Acute AYDEE RIVERA MD Mar 16, 2022 11:07
[2022-03-17 04:17] VITALS: BP 145/96
[2022-03-17 05:12] LABS: ALBUMIN 3.7 GM/DL (3.2-4.5); CALCIUM 8.2 MG/DL (8.5-10.1); CREATININE SERUM 0.71 MG/DL (0.60-1.30); POTASSIUM 3.7 MMOL/L (3.6-5.0); TOTAL PROTEIN 7.3 GM/DL (6.4-8.2)
[2022-03-17] MEDS: POTASSIUM CL 10MEQ/50ML IVPB 50 ML IV SCH (05:17)
[2022-03-17] MEDS: KCL 20 MEQ TAB (K-DUR) PO SCH (05:17)
[2022-03-17] MEDS: MAGNESIUM 1 GM/100 ML IVPB 100 ML IV SCH ×3 (06:21→08:09)
[2022-03-17 07:24] VITALS: BP 151/94
[2022-03-17] MEDS: PANTOPRAZOLE 40 MG (PROTONIX) VIAL IV SCH (08:09)
[2022-03-17] MEDS ORDERED: ONDA4TAB11 PO (08:25)
[2022-03-17] MEDS ORDERED: PANT40TA2 PO (08:25)
--- NOTE | 2022-03-17 08:26 | Discharge Inst-Simple/Standard ---
Discharge Inst-Standard Discharge Medications New, Converted or Re-Newed RX: RX on Chart Patient Instructions/Follow Up Plan of Care/Instructions/FU: Please continue to take your medications as written. Please follow up with your primary care doctor to follow up this hospital stay. Activity as Tolerated: Yes Discharge Diet: Eat Small Frequent Meals, Soft Diet Return to The Hospital For: Chest pain, abdominal pain, nausea, vomiting, shortness of breath, fever, weakness, if you feel you are getting worse. ERICA BUI MD Mar 17, 2022 08:26
--- NOTE | 2022-03-17 08:28 | Discharge Summary ---
Diagnosis/Chief Complaint Date of Admission Mar 15, 2022 at 03:55 Date of Discharge Discharge Date: Mar 17, 2022 Admission Diagnosis Elevated liver enzymes Primary Care No,Local Physician Discharge Diagnosis (1) Elevated LFTs Status: Acute (2) Abdominal pain Status: Acute (3) Nausea & vomiting Status: Acute (4) Hypokalemia Status: Acute (5) Hypomagnesemia Status: Acute (6) History of torsades de pointes Status: Chronic (7) Alcohol abuse Status: Chronic (8) Fatty liver Status: Acute (9) Acute on chronic alcoholic liver disease Status: Acute Discharge Summary Discharge Physical Exam Allergies: Coded Allergies: doxycycline (Verified Allergy, Unknown, 10/08/21) Vitals & I&Os Vital Signs Date Time Temp Pulse Resp B/P (MAP) Pulse Ox O2 Delivery O2 Flow Rate FiO2 03/17/22 07:24 36.3 66 16 151/94 (113) 100 Room Air General Appearance: No Apparent Distress Respiratory: Lungs Clear Cardiovascular: No Murmur Neurologic/Psychiatric: Alert, Oriented x3 Hospital Course Patient was admitted to the hospital secondary to acute alcoholic hepatitis with intractable nausea and vomiting and electrolyte derangements. Her electrolytes were replenished and she was treated with antiemetics and improved. She was able to tolerate a bland diet upon discharge and was requesting discharge home. Blood pressure was slightly elevated but likely due to vomiting. She does follow with a GI doctor in [place] and it was recommended that she continue with this. She is also to follow-up with her primary care physician to follow-up this hospital stay. Labs (last 24 hrs) Laboratory Tests 03/17/22 04:39: Sodium Level 135, Potassium Level 3.7, Chloride Level 103, Carbon Dioxide Level 23, Anion Gap 9, Blood Urea Nitrogen 3L, Creatinine 0.71, Estimat Glomerular Filtration Rate 110, BUN/Creatinine Ratio 4, Glucose Level 89, Calcium Level 8.2L, Corrected Calcium 8.4L, Magnesium Level 1.6, Total Bilirubin 4.0H, Aspartate Amino Transf (AST/SGOT) 238H, Alanine Aminotransferase (ALT/SGPT) 154H , Alkaline Phosphatase 103, Total Protein 7.3, Albumin 3.7 Patient resulted labs reviewed. Pending Labs Laboratory Tests 03/17/22 04:39: Sodium Level 135, Potassium Level 3.7, Chloride Level 103, Carbon Dioxide Level 23, Anion Gap 9, Blood Urea Nitrogen 3, Creatinine 0.71, Estimat Glomerular Filtration Rate 110, BUN/Creatinine Ratio 4, Glucose Level 89, Calcium Level 8.2, Corrected Calcium 8.4, Magnesium Level 1.6, Total Bilirubin 4.0, Aspartate Amino Transf (AST/SGOT) 238, Alanine Aminotransferase (ALT/SGPT) 154, Alkaline Phosphatase 103, Total Protein 7.3, Albumin 3.7 Imaging: Reviewed Imaging Report Discussion & Recommendations Discharge Planning: >30 minutes discharge planning Discharge Home Medications: Active Scripts Active Protonix (Pantoprazole Sodium) 40 Mg Tablet.dr 40 Mg PO DAILY Ondansetron Odt (Ondansetron) 4 Mg Tab.rapdis 4 Mg PO Q4H PRN Instructions to patient/family Please see electronic discharge instructions given to patient. Problem Qualifiers (1) Abdominal pain: Abdominal location: generalized Qualified Codes: R10.84 - Generalized abdominal pain (2) Nausea & vomiting: Vomiting type: unspecified Qualified Codes: R11.2 - Nausea with vomiting, unspecified ERICA BUI MD Mar 17, 2022 08:28
[2022-03-17 11:23] VITALS: BP 151/94
== END 2022-03-17 11:25 | disposition home or self-care (01) | DRG 433 ==
LOC: EDUNIT# 23:58 → ER FS 03-15 00:01 → 4TH 03-15 03:55
PROVIDERS: ADMIT Internal Medicine; ATTEND Family Medicine
DX: K70.10 Alcoholic hepatitis without ascites (principal); E87.3 Alkalosis; E87.6 Hypokalemia; E83.42 Hypomagnesemia; F10.10 Alcohol abuse, uncomplicated; Y90.0 Blood alcohol level of less than 20 mg/100 ml; Z88.1 Allergy status to other antibiotic agents
CPT/HCPCS: 36415; 74018; 76705; 80048; 80053; 80320; 80329; 81000; 82805; 83690; 83735; 84703; 85025; 93005

== ENCOUNTER 2022-08-13 19:29 | Emergency (ER) | payer BC ==
[~2022-08-13] VITALS: Ht 167.7 cm; Wt 74.6 kg
[~2022-08-13 19:29] MED LIST: ONDA4TAB11 PO; PANT40TA2 PO
[2022-08-13 19:59] LABS: EOSINOPHILS % (AUTO) 0 % (0-10)
[2022-08-13] MEDS ORDERED: ONDANSETRON 4 MG/2 ML (SDV) Z0FRAN IVP ONE (20:00)
[2022-08-13] MEDS ORDERED: NS IV 1000 ML 1,000 ML IV SCH ×2 (20:00→20:45)
[2022-08-13 20:01] LABS: ALBUMIN 4.4 GM/DL (3.2-4.5); BASOPHILS % (AUTO) 0 % (0-10); CHLORIDE 94 MMOL/L (98-107); HEMATOCRIT 42 % (35-52); HEMOGLOBIN 14.6 g/dL (11.5-16.0); LYMPHOCYTES # (AUTO) 0.7 10^3/uL (1.0-4.0); LYMPHOCYTES % (AUTO) 7 % (12-44); MEAN CORPUSCULAR HEMOGLOBIN 34 pg (25-34); MEAN CORPUSCULAR HGB CONC 35 g/dL (32-36); MEAN CORPUSCULAR VOLUME 97 fL (80-99); MEAN PLATELET VOLUME 10.9 fL (9.0-12.2); MONOCYTES # (AUTO) 0.6 10^3/uL (0.0-1.0); MONOCYTES % (AUTO) 6 % (0-12); NEUTROPHILS # (AUTO) 8.5 10^3/uL (1.8-7.8); NEUTROPHILS % (AUTO) 86 % (42-75); PLATELET COUNT 91 10^3/uL (130-400); POTASSIUM 3.8 MMOL/L (3.6-5.0); SODIUM 136 MMOL/L (135-145)
[2022-08-13 20:01] LABS: CLARITY,URINE CLOUDY; COLOR,URINE BROWN; GLUCOSE, URINE (UA) TRACE (NEGATIVE); KETONES,URINE TRACE (NEGATIVE); LEUKOCYTE ESTERASE ,URINE NEGATIVE (NEGATIVE); NITRITE,URINE POSITIVE (NEGATIVE); PROTEIN,URINE 3+ (NEGATIVE)
[2022-08-13 20:03] LABS: CALCIUM 10.1 MG/DL (8.5-10.1)
[2022-08-13 20:04] LABS: GLUCOSE 74 MG/DL (70-105); INR 1.3 (0.8-1.4); PROTHROMBIN TIME PATIENT 15.9 SEC (12.2-14.7); TOTAL PROTEIN 8.8 GM/DL (6.4-8.2)
[2022-08-13 20:05] LABS: CARBON DIOXIDE 21 MMOL/L (21-32)
[2022-08-13 20:07] LABS: ALKALINE PHOSPHATASE 189 U/L (40-136)
[2022-08-13 20:08] LABS: GFR ESTIMATED 73
[2022-08-13 20:09] LABS: BUN/CREATININE RATIO 6
[2022-08-13 20:10] LABS: ALANINE AMINOTRANSFERASE 88 U/L (0-55); MAGNESIUM 1.4 MG/DL (1.6-2.4)
[2022-08-13 20:14] LABS: AMORPHOUS SEDIMENT,UR FEW AMOR URATES /LPF; BACTERIA,URINE LARGE /HPF; HYALINE CASTS, URINE 25-50 /LPF
[2022-08-13 20:16] LABS: SQUAMOUS EPITHELIAL CELL,UR >50 /HPF
[2022-08-13 20:25] LABS: BAND NEUTROPHILS 4 %; LYMPHOCYTES % (MANUAL) 2 %; MONOCYTES % (MANUAL) 5 %; NEUTROPHILS % (MANUAL) 89 %; PLATELET CLUMPS SLIGHT
[2022-08-13 20:26] LABS: PLATELET ESTIMATE DECREASED; RBC MORPH NORMAL
[2022-08-13] MEDS ORDERED: MAGNESIUM OXIDE (MAG-OX)400 MG TAB PO STA (20:31)
[2022-08-13 20:33] LABS: AMPHETAMINE SCREEN, URINE NEGATIVE (NEGATIVE); BARBITURATE SCREEN URINE NEGATIVE (NEGATIVE); BENZODIAZEPINES SCREEN URINE NEGATIVE (NEGATIVE); CANNABINOID SCREEN, URINE NEGATIVE (NEGATIVE); COCAINE SCREEN URINE NEGATIVE (NEGATIVE); METHADONE STAT NEGATIVE (NEGATIVE); OPIATE SCREEN URINE NEGATIVE (NEGATIVE); OXYCODONE STAT NEGATIVE (NEGATIVE); PROPOXYPHENE STAT NEGATIVE (NEGATIVE); TRICYCLIC ANTIDEPRESSANTS SCRE NEGATIVE (NEGATIVE)
[2022-08-13] MEDS ORDERED: NS IV 1000 ML 1,000 ML ONE (20:38)
--- NOTE | 2022-08-13 20:42 | ED GI ---
General Chief Complaint: Abdominal/GI Problems Stated Complaint: FALL|THROWING UP BLOOD|ABDOMINAL PAIN Nursing Triage Note: TO ED VIA POV AND AMBULATORY TO ROOM 6 WITH C/O FALLING THE THURSDAY BEFORE MOTHER'S DAY AND HAS LEFT SIDE FLANK PAIN THIS WAS UNWITNESS AND SHE DOESN'T KNOW WHAT SHE HIT. TODAY PT HAS BEEN VOMITING ALL DAY AND UNABLE TO KEEP ANYTHING DOWN. PT STATES SHE IS A DAILY VODKA DRINKER, UNKNOWN AMOUNT JUST STATES, "ALOT". History of Present Illness Date Seen by Provider: August 13, 2022 Time Seen by Provider: 19:42 Initial Comments 42-year-old female presents for vomiting x3 since this afternoon with blood noted in emesis. The first time the blood was bright red but the last episode the blood was dark brown. Patient has no history of esophageal varices. She has significant history of alcohol abuse. She reports last alcohol intake to be yesterday. On 08/01/22 she fell, unsure of exact events but awoke with superficial abrasions and bruising to her LUQ. This was improving until yesterday when she noted some vomiting and today when her symptoms worsen and she noted the blood in her emesis. She has a history of torsades and is not currently on any medications. She uses alcohol to help with her anxiety and insomnia. She has quit drinking at different points in time but has never done rehab or AA. She moved from the [facility] to [place] over the last year and has had many life events that has added stress. She has 4 children 11- 17 in age and that also consumes alcohol regularly. She reports chronic hypomagnesium, she takes magnesium supplements but continues to be low. She de nies any alcohol intake today, last time was wine last night. Timing/Duration: 4-6 Hours Severity/Quality: Moderate Location: LUQ, Flank Radiation: No Radiation Modifying Factors: Improves With Resting Associated Symptoms: No Back Pain, No Chest Pain, No Fever/Chills, No Fatigue, No Heartburn; Nausea/Vomiting; No Swelling/Mass in Abdomen Allergies and Home Medications Allergies Coded Allergies: doxycycline (Verified Allergy, Unknown, 10/08/21) Patient Home Medication List Home Medication List Reviewed: Yes Nitrofurantoin Monohyd/M-Cryst (Macrobid 100 mg Capsule) 100 Mg Capsule, 1 TAB PO BID Prescribed by: ANDREW SHARP on 08/13/222117 Ondansetron (Ondansetron Odt) 4 Mg Tab.rapdis, 4 MG PO Q4H PRN for NAUSEA/VOMITING-1ST LINE Prescribed by: ERICA BUI on 03/17/22824 Ondansetron (Ondansetron Odt) 4 Mg Tab.rapdis, 4 MG PO Q6H PRN for NAUSEA/VOMITING Prescribed by: ANDREW SHARP on 08/13/222117 Pantoprazole Sodium (Protonix) 40 Mg Tablet.dr, 40 MG PO DAILY Prescribed by: ERICA BUI on 03/17/22824 Review of Systems Review of Systems Constitutional: no symptoms reported, see HPI Gastrointestinal: See HPI, Abdominal Pain (LUQ); Denies Blood Streaked Stools, Denies Constipated, Denies Diarrhea; Nausea, Poor Appetite, Poor Fluid Intake; Denies Rectal Bleeding; Vomiting (with blood streaked emesis) Psychiatric/Neurological: See HPI, Anxiety, Other (Alcohol abuse) All Other Systems Reviewed Negative Unless Noted: Yes Past Xnlnogd-Vpcxok-Jhvuyq Hx Patient Social History Tobacco Use?: No Substance use?: No Alcohol Use?: Yes Alcohol type: Hard Liquor Alcohol Frequency: Daily Immunizations Up To Date First/Initial COVID19 Vaccinat: Yes Second COVID19 Vaccination Jesse: Yes Third COVID19 Vaccination Date: Yes COVID19 Vaccine Neuro Urologist: states she has had 2 vaccines Past Medical History Surgery/Hospitalization HX: Gallbladder Family Medical History No Pertinent Family Hx Physical Exam Vital Signs Vital Signs - First Documented Capillary Refill : Less Than 3 Seconds Height/Weight/BMI Height: '" Weight: lbs. oz. kg; 26.00 BMI Method: General Appearance: WD/WN, mild distress HEENT: PERRL/EOMI, normal ENT inspection, pharynx normal, scleral icterus (R), scleral icterus (L) Neck: non-tender, full range of motion, supple, normal inspection Respiratory: chest non-tender, lungs clear, normal breath sounds Cardiovascular: normal peripheral pulses, regular rate, rhythm, tachycardia (90-110) Gastrointestinal: normal bowel sounds, soft, distended; No rebound; tenderness, other (Previous cholecystectomy. LUQ/Flank, resolving hematoma and ecchymosis. Mild tenderness.) Pelvic: normal external exam Neurologic/Psychiatric: no motor/sensory deficits, alert, normal mood/affect, oriented x 3 Skin: normal color, warm/dry; No jaundice Lymphatic: no adenopathy Progress/Results/Core Measures Results/Orders Lab Results Laboratory Tests Test 08/13/22 19:40 08/13/22 19:48 Range/Units White Blood Count 10.0 4.3-11.0 10^3/uL Red Blood Count 4.33 3.80-5.11 10^6/uL Hemoglobin 14.6 11.5-16.0 g/dL Hematocrit 42 35-52 % Mean Corpuscular Volume 97 80-99 fL Mean Corpuscular Hemoglobin 34 25-34 pg Mean Corpuscular Hemoglobin Concent 35 32-36 g/dL Red Cell Distribution Width 14.2 10.0-14.5 % Platelet Count 91 L 130-400 10^3/uL Mean Platelet Volume 10.9 9.0-12.2 fL Immature Granulocyte % (Auto) 1 % Neutrophils (%) (Auto) 86 H 42-75 % Lymphocytes (%) (Auto) 7 L 12-44 % Monocytes (%) (Auto) 6 0-12 % Eosinophils (%) (Auto) 0 0-10 % Basophils (%) (Auto) 0 0-10 % Neutrophils # (Auto) 8.5 H 1.8-7.8 10^3/uL Lymphocytes # (Auto) 0.7 L 1.0-4.0 10^3/uL Monocytes # (Auto) 0.6 0.0-1.0 10^3/uL Eosinophils # (Auto) 0.0 0.0-0.3 10^3/uL Basophils # (Auto) 0.0 0.0-0.1 10^3/uL Immature Granulocyte # (Auto) 0.1 0.0-0.1 10^3/uL Neutrophils % (Manual) 89 % Lymphocytes % (Manual) 2 % Monocytes % (Manual) 5 % Band Neutrophils 4 % Platelet Estimate DECREASED Clumped Platelets SLIGHT Percent Immature Platelet Fraction 6.5 0.0-7.6 % Blood Morphology Comment NORMAL Prothrombin Time 15.9 H 12.2-14.7 SEC INR Comment 1.3 0.8-1.4 Activated Partial Thromboplast Time 34 24-35 SEC Sodium Level 136 135-145 MMOL/L Potassium Level 3.8 3.6-5.0 MMOL/L Chloride Level 94 L 98-107 MMOL/L Carbon Dioxide Level 21 21-32 MMOL/L Anion Gap 21 H 5-14 MMOL/L Blood Urea Nitrogen 6 L 7-18 MG/DL Creatinine 1.00 0.60-1.30 MG/DL Estimat Glomerular Filtration Rate 73 BUN/Creatinine Ratio 6 Glucose Level 74 70-105 MG/DL Calcium Level 10.1 8.5-10.1 MG/DL Corrected Calcium 9.8 8.5-10.1 MG/DL Magnesium Level 1.4 L 1.6-2.4 MG/DL Total Bilirubin 9.0 H 0.1-1.0 MG/DL Aspartate Amino Transf (AST/SGOT) 257 H 5-34 U/L Alanine Aminotransferase (ALT/SGPT) 88 H 0-55 U/L Alkaline Phosphatase 189 H 40-136 U/L Total Protein 8.8 H 6.4-8.2 GM/DL Albumin 4.4 3.2-4.5 GM/DL Serum Alcohol < 10 <10 MG/DL Urine Color BROWN H Urine Clarity CLOUDY Urine pH 6.0 5-9 Urine Specific [place] >=1.030 1.016-1.022 Urine Protein 3+ H NEGATIVE Urine Glucose (UA) TRACE H NEGATIVE Urine Ketones TRACE H NEGATIVE Urine Nitrite POSITIVE H NEGATIVE Urine Bilirubin 3+ H NEGATIVE Urine Urobilinogen 4.0 < = 1.0 MG/DL Urine Leukocyte Esterase NEGATIVE NEGATIVE Urine RBC (Auto) TRACE-I H NEGATIVE Urine RBC NONE /HPF Urine WBC 2-5 /HPF Urine Squamous Epithelial Cells >50 H /HPF Urine Crystals PRESENT H /LPF Urine Amorphous Sediment FEW LOS URATES H /LPF Urine Bacteria LARGE H /HPF Urine Casts PRESENT /LPF Urine Hyaline Casts 25-50 H /LPF Urine Mucus LARGE H /LPF Urine Other /HPF Urine Culture Indicated YES Urine Opiates Screen NEGATIVE NEGATIVE Urine Oxycodone Screen NEGATIVE NEGATIVE Urine Methadone Screen NEGATIVE NEGATIVE Urine Propoxyphene Screen NEGATIVE NEGATIVE Urine Barbiturates Screen NEGATIVE NEGATIVE Ur Tricyclic Antidepressants Screen NEGATIVE NEGATIVE Urine Phencyclidine Screen NEGATIVE NEGATIVE Urine Amphetamines Screen NEGATIVE NEGATIVE Urine Methamphetamines Screen NEGATIVE NEGATIVE Urine Benzodiazepines Screen NEGATIVE NEGATIVE Urine Cocaine Screen NEGATIVE NEGATIVE Urine Cannabinoids Screen NEGATIVE NEGATIVE My Orders Orders - ANDREW SHARP Ed Iv/Invasive Line Start (08/13/22 19:50) Ns Iv 1000 Ml (Sodium Chloride 0.9%) (08/13/22 20:00) Ondansetron Injection (Zofran Injectio (08/13/22 20:00) Alcohol (08/13/22 19:50) Cbc With Automated Diff (08/13/22 19:50) Comprehensive Metabolic Panel (08/13/22 19:50) Magnesium (08/13/22 19:50) Protime With Inr (08/13/22 19:50) Partial Thromboplastin Time (08/13/22 19:50) Ua Culture If Indicated (08/13/22 19:50) Drug Screen Stat (Urine) (08/13/22 19:59) Urine Bedside (08/13/22 20:02) Manual Differential (08/13/22 19:40) Urine Culture (08/13/22 19:48) Ed Iv/Invasive Line Start (08/13/22 20:31) Ns Iv 1000 Ml (Sodium Chloride 0.9%) (08/13/22 20:45) Magnesium Oxide Tablet (Mag Ox Tablet) (08/13/22 20:31) Ct Abdomen/Pelvis W (08/13/22 20:31) Ribs, Left 2-3 Views (08/13/22 20:31) Iohexol Injection (Omnipaque 350 Mg/Ml 1 (08/13/22 20:45) Received Contrast (Hold Metformin- Contr (08/13/22 20:45) Ns (Ivpb) (Sodium Chloride 0.9% Ivpb Bag (08/13/22 20:45) Rx-Ondansetron Po (Rx-Zofran Po) (08/13/22 21:15) Rx-Nitrofurantoin [place] (Rx-Macrobid) (08/13/22 21:15) Ns Iv 1000 Ml (Sodium Chloride 0.9%) (08/13/22 20:38) Magnesium Oxide Tablet (Mag Ox Tablet) (08/13/22 20:54) Medications Given in ED Current Medications Medications Dose Ordered Sig/Roel Route Start Time Stop Time Status Last Admin Dose Admin Iohexol 100 ml ONCE ONCE IV 08/13/22 20:45 08/13/22 20:46 DC 08/13/22 20:44 80 ML Ondansetron HCl 4 mg ONCE ONCE IVP 08/13/22 20:00 08/13/22 20:01 DC 08/13/22 20:04 4 MG Sodium Chloride 100 ml ONCE ONCE IV 08/13/22 20:45 08/13/22 20:46 DC 08/13/22 20:44 80 ML Vital Signs/I&O 08/13/22 08/13/22 08/13/22 19:36 19:36 21:37 Temp 37.0 Pulse 108 105 Resp 20 20 B/P (MAP) 163/105 (124) 120/85 Pulse Ox 98 97 O2 Delivery Room Air Room Air Room Air Blood Pressure Mean: 124 Progress Progress Note : Time: 19:42 Progress Note Patient assessed, will obtain labs, normal saline 1 L per IV, and Zofran 4 mg IV. Total counseling time 15 min regarding alcohol addiction and options to treat, inpatient vs outpatient rehab and AA. Encouraged follow up with Dr. Daja Jacques and to consider ATC in [place] or AA group meetings/sponsor in [facility]. Patient is very open about her history and dependence on alcohol. and patient report all alcohol in house has removed. Patient open to all ideas, she realizes her health is being greatly affected by her alcohol abuse. She was told of borderline Fatty Liver disease and is worried because of the scleral icterus she has noticed and didn't have before. 2030 nausea improved. Will give Magnesium po and CT abd/pelvis, x-ray left ribs; due to area of tenderness/ecchymosis and fall with possible internal injuries. Platelets 91, AST T257, ALT 88 (similar to last admission), bilirubin 9 (elevated from last admission), magnesium 1.4, creatinine 1.0, sodium and potassium normal. UTI noted on UA. Blood alcohol and UDS Neg. Ketones in urine, will give second liter of fluids. 2100 no fx noted to left ribs. CT showed no acute injuries to spleen or left abdomen. Findings in liver chronic and will need follow up, non emergent MRI. 2130 spoke to patient and for a total of 15 min, discussing the low platelets from chronic ETOH and vomiting will increase risk of bleeding and can lead to esophageal varicies. She will take the alcohol abuse and addiction seriously and follow-up with [facility]. She is open to starting AA. Treatment for UTI reviewed. She will start the antibiotic. Discharge instructions and careful follow-up were encouraged outpatient with Dr. Jacques or another PCP at [facility]. Return to ED for emergent concerns reviewed. Patient and spouse verbalized understanding. Diagnostic Imaging Diagonstic Imaging: Xray Plain Films/CT/US/NM/MRI: other (ribs) Comments NAME: [facility]EX [facility] REC#: [id number] PT STATUS: REG ER : 1980 PHYSICIAN: ANDREW SHARP ADMIT DATE: 08/13/22/ER Draft Date of Exam:08/13/22 RIBS, LEFT 2-3 VIEWS EXAMINATION: Left ribs, 3 views. COMPARISON: None. HISTORY: 42-year-old female, fall. Left rib pain. FINDINGS: There is no identified left rib fracture. There is contrast in the urinary collecting systems likely relating to recent administration of contrast. Upper quadrant surgical clips likely reflect prior cholecystectomy. The visualized portions of the lungs are clear. IMPRESSION: No identified acute abnormality of the left ribs. Dictated on workstation # [id number] Dict: 08/13/222050 Trans: 08/13/222055 [facility] [id number] Interpreted by: KIRBY SANTILLAN MD Electronically signed by: Reviewed: Reviewed by Me Diagonstic Imaging: CT Plain Films/CT/US/NM/MRI: abdomen, pelvis Comments NAME: [facility] REC#: [id number] PT STATUS: REG ER : 1980 PHYSICIAN: ANDREW SHARP ADMIT DATE: 08/13/22/ER Draft Date of Exam:08/13/22 CT ABDOMEN/PELVIS W PROCEDURE: CT abdomen and pelvis with contrast. TECHNIQUE: Multiple contiguous axial images were obtained through the abdomen and pelvis after administration of intravenous contrast. Auto Exposure Controls were utilized during the CT exam to meet ALARA standards for radiation dose reduction. All CT scans use one or more of the following dose optimizing techniques: automated exposure control, MA and/or KvP adjustment based on patient size and exam type or iterative reconstruction. INDICATION: Fall, pain. COMPARISON: None available. FINDINGS: The visualized lung bases are clear. Cholecystectomy. Heterogeneous density and enhancement of the liver is noted in a geographic appearance. The main portal vein is patent. The spleen is unremarkable. The adrenal glands are unremarkable. The pancreas is unremarkable. The bilateral kidneys are unremarkable. No aneurysmal dilatation of the abdominal aorta. Tiny fat-containing umbilical hernia. The urinary bladder is decompressed, therefore not well evaluated. Small bilateral fat-containing inguinal hernias. The uterus and adnexal structures are unremarkable for age. No significant inflammatory stranding within the right lower quadrant to suggest acute appendicitis. The appendix is unremarkable. No bowel obstruction or pneumatosis. No significant adenopathy, free air or free fluid within the abdomen or pelvis. No acute osseous abnormality. IMPRESSION: Geographic density and enhancement of the liver. This is favored to relate to geographic focal fatty infiltration, though chronic liver disease and underlying fibrosis would be additional considerations. A nonemergent MRI of the abdomen with and without contrast using hepatic mass protocol would help to further evaluate. Additional findings as described above. This includes the urinary bladder being completely decompressed and the colon being predominantly decompressed as well. Dictated on workstation # [id number] Dict: 08/13/222047 Trans: 08/13/222101 [facility] [id number] Interpreted by: KIA DO MD Electronically signed by: Reviewed: Reviewed by Me Departure Impression Primary Impression: Alcohol abuse Additional Impressions: Nausea & vomiting Qualified Codes: K92.0 - Hematemesis History of torsades de pointes UTI (urinary tract infection) Qualified Codes: N30.01 - Acute cystitis with hematuria Fatty liver Disposition: HOME, SELF-CARE Condition: Improved Departure-Patient Inst. Decision time for Depature: 21:05 Referrals: [facility],LOCAL PHYSICIAN (PCP) Primary Care Physician DAJA JACQUES MD Patient Instructions: Alcohol Use Disorder (DC), Alcohol Withdrawal (DC), Cirrhosis (DC), Urinary Tract Infection, Adult (DC) Add. Discharge Instructions: Schedule appt with Dr. Jacques in [place] or a PCP in [facility]. Consider ATC for inpatient alcohol rehab, AA meetings/sponor in [facility]. Follow up with PCP for MRI to evaluate liver Take antibiotics as prescribed for UTI. Push fluids and Gatorade for dehydration. Take Zofran as needed for nausea and vomiting. Continue to take your magnesium supplement, consider taking a Women's daily multivitamin. Return to the emergency department for return of blood when vomiting or new/urgent healthcare needs. All discharge instructions reviewed with patient and/or family. Voiced understanding. Scripts Ondansetron (Ondansetron Odt) 4 Mg Tab.rapdis 4 MG PO Q6H PRN for NAUSEA/VOMITING, #8 TAB 0 Refills Prov: ANDREW SHARP 08/13/22 Nitrofurantoin Monohyd/M-Cryst (Macrobid 100 mg Capsule) 100 Mg Capsule 1 TAB PO BID, #6 CAP 0 Refills Prov: ANDREW SHARP 08/13/22 Copy Copies To 1: DAJA JACQUES MD, AMY ARNP August 13, 2022 20:42
[2022-08-13] MEDS ORDERED: IOHEXOL 350 MG/ML 100 ML (OMNIPAQUE 350) VIAL IV ONE (20:45)
[2022-08-13] MEDS ORDERED: HOLD METFORMIN - RECEIVED CONTRAST 20 ML VIAL IV SCH (20:45)
[2022-08-13] MEDS ORDERED: NS 100 ML (IVPB) BAG IV ONE (20:45)
[2022-08-13] MEDS ORDERED: MAGNESIUM OXIDE (MAG-OX)400 MG TAB ONE (20:54)
--- NOTE | 2022-08-13 20:56 | Diagnostic Imaging Report ---
EXAMINATION: Left ribs, 3 views. COMPARISON: None. HISTORY: 42-year-old female, fall. Left rib pain. FINDINGS: There is no identified left rib fracture. There is contrast in the urinary collecting systems likely relating to recent administration of contrast. Upper quadrant surgical clips likely reflect prior cholecystectomy. The visualized portions of the lungs are clear. IMPRESSION: No identified acute abnormality of the left ribs. Dictated by: Dictated on workstation # [id number]
--- NOTE | 2022-08-13 21:02 | Diagnostic Imaging Report ---
PROCEDURE: CT abdomen and pelvis with contrast. TECHNIQUE: Multiple contiguous axial images were obtained through the abdomen and pelvis after administration of intravenous contrast. Auto Exposure Controls were utilized during the CT exam to meet ALARA standards for radiation dose reduction. All CT scans use one or more of the following dose optimizing techniques: automated exposure control, MA and/or KvP adjustment based on patient size and exam type or iterative reconstruction. INDICATION: Fall, pain. COMPARISON: None available. FINDINGS: The visualized lung bases are clear. Cholecystectomy. Heterogeneous density and enhancement of the liver is noted in a geographic appearance. The main portal vein is patent. The spleen is unremarkable. The adrenal glands are unremarkable. The pancreas is unremarkable. The bilateral kidneys are unremarkable. No aneurysmal dilatation of the abdominal aorta. Tiny fat-containing umbilical hernia. The urinary bladder is decompressed, therefore not well evaluated. Small bilateral fat-containing inguinal hernias. The uterus and adnexal structures are unremarkable for age. No significant inflammatory stranding within the right lower quadrant to suggest acute appendicitis. The appendix is unremarkable. No bowel obstruction or pneumatosis. No significant adenopathy, free air or free fluid within the abdomen or pelvis. No acute osseous abnormality. IMPRESSION: Geographic density and enhancement of the liver. This is favored to relate to geographic focal fatty infiltration, though chronic liver disease and underlying fibrosis would be additional considerations. A nonemergent MRI of the abdomen with and without contrast using hepatic mass protocol would help to further evaluate. Additional findings as described above. This includes the urinary bladder being completely decompressed and the colon being predominantly decompressed as well. Dictated by: Dictated on workstation # [id number]
[2022-08-13] MEDS ORDERED: RX-ONDANSETRON 4 MG ODT (ZOFRAN) PPK #4 PO STA (21:15)
[2022-08-13] MEDS ORDERED: RX-NITROFURANTOIN 100 MG (MACROBID) CAP PPK#2 PO STA (21:15)
[2022-08-13 21:17] LABS: BILIRUBIN,URINE 3+ (NEGATIVE)
[2022-08-13] MEDS ORDERED: ONDA4TAB11 PO (21:18)
[2022-08-13] MEDS ORDERED: NITR-65 PO (21:18)
[2022-08-13 21:37] VITALS: BP 120/85
[2022-08-18] MEDS ORDERED: CEPH500T PO (07:18)
== END 2022-08-13 21:45 | disposition home or self-care (01) ==
LOC: EDUNIT# 19:29 → ER 19:32
DX: F10.20 Alcohol dependence, uncomplicated (principal); K70.0 Alcoholic fatty liver; N39.0 Urinary tract infection, site not specified; D69.6 Thrombocytopenia, unspecified; E80.6 Other disorders of bilirubin metabolism; Y90.0 Blood alcohol level of less than 20 mg/100 ml; Z86.79 Personal history of other diseases of the circulatory system; Z90.49 Acquired absence of other specified parts of digestive tract; Z88.1 Allergy status to other antibiotic agents
CPT/HCPCS: 71100; 74177; 80053; 80306; 81000; 83735; 84703; 85007; 85025; 85027; 85610; 85730; 87077; 87088; 87186; 99284; G0480; 36415; 80320